=== PATIENT | male | born 1970 | race Caucasian/White ===

== ENCOUNTER 2022-10-22 16:24 | Emergency (ER) | payer OTHER, SELFPAY ==
[2022-10-22] VITALS (11 sets, daily range): BP systolic 118–158; BP diastolic 73–90; PULSE 66–73; RESP 17–22; TEMP 36.6; O2SAT 97–100; BMI 28.4
--- NOTE | 2022-10-22 16:45 | DI.RAD.S_ITS ---
PROCEDURE: XR CHEST 1V INDICATIONS: chest pain TECHNIQUE: One view of the chest was acquired. COMPARISON: None. FINDINGS: Surgical changes and devices: None. Lungs and pleura: Lungs are clear. No pleural effusions or pneumothorax. Mediastinum: Mediastinal contours appear normal. Heart size is normal. Bones and chest wall: No suspicious bony lesions. Overlying soft tissues appear unremarkable. IMPRESSION: No evidence of an acute cardiopulmonary abnormality. Dictated by: Dann Bauer D.O. on 10/22/2022 at 16:13 Approved by: Dann Bauer D.O. on 10/22/2022 at 16:13
--- NOTE | 2022-10-22 16:53 | PC.NURSE ---
Patient has subconjunctival hemorrhage in left eye below iris that terminates at edge of contact lens and resumes below it. Patient denies trauma or any other episode that could have resulted in the blood.
[2022-10-22 16:56] LABS: Add Manual Diff / Slide Review NO; Basophils Absolute Auto 100 /uL (0-100); Eosinophils Absolute Auto 300 /uL (0-450); Eosinophils Percent Auto 3.1 % (2-4); Hematocrit 44.6 % (41-53); Hemoglobin 15.2 g/dL (13.5-17.5); Lymphocytes Absolute Auto 2600 /uL (1100-4500); Lymphocytes Percent Auto 29.9 % (25-40); Mean Corpuscular HGB Conc 34.1 % (30-36); Mean Corpuscular Hemoglobin 29.2 PG (26-34); Mean Corpuscular Volume 85.6 fL (80-100); Monocytes Absolute Auto 600 /uL (0-900); Monocytes Percent Auto 6.5 % (3-14); Neutrophils Absolute Auto 5200 /uL (1500-7000); Neutrophils Percent Auto 59.5 % (50-75); Platelet Count 244 X10^3/uL (150-400); Red Blood Cell Count 5.21 X10^6/uL (4.5-5.9); Red Cell Distribution Width 13.9 % (11.6-14.8); White Blood Cell Count 8.8 X10^3/uL (4.5-11.0)
[2022-10-22 17:05] LABS: Prothrombin Time 11.3 SECONDS (10.1-12.7)
[2022-10-22 17:08] LABS: PTT Partial Thromboplastin Tim 31 SECONDS (26-36)
[2022-10-22 17:12] LABS: Alanine Aminotransferase 27 IU/L (<50); Albumin 4.9 g/dL (3.5-5.0); Albumin Globulin Ratio 1.3 (1.0-2.8); Alkaline Phosphatase 70 U/L (38-126); Aspartate Aminotransferase 47 IU/L (17-59); BUN Creatinine Ratio 23.9 (6-22); Bilirubin Total 0.7 mg/dL (0.2-1.3); Blood Urea Nitrogen 17 mg/dL (9-20); Calcium 9.4 mg/dL (8.4-10.2); Carbon Dioxide 23 mmol/L (22-32); Chloride 103 mmol/L (98-107); Creatine Kinase 64 U/L (55-170); Estimated Glomerular Filt Rate > 60 mL/min (>60); Globulin 3.8 g/dL (1.7-4.1); Glucose 84 mg/dL (70-100); Magnesium 2.1 mg/dL (1.6-2.3); Potassium 4.5 mmol/L (3.4-5.1); Sodium 136 mmol/L (137-145); Total Protein 8.7 g/dL (6.3-8.2)
[2022-10-22 17:23] LABS: Troponin I 0.024 ng/mL (0.01-0.034)
[2022-10-22 17:24] LABS: HEMOLYSIS 103 (0-50)
--- NOTE | 2022-10-22 17:44 | ED_ITS ---
HPI - Dizziness <Caro Toledo PA-C - Last Filed: 10/22/22 20:28> General Chief Complaint: Dizziness Stated Complaint: Lightheadedness Time Seen by Provider: 10/22/22 17:09 Source: patient Mode of arrival: Ambulatory History of Present Illness HPI Narrative: This is a 52-year-old male history of anxiety, depression, lumbar spinal decompression surgery, who presents with concern for headache/scalp numbness ep isodes that have been increasing in frequency for the past 2 weeks. Patient is also concerned about pain in his left calf that has been chronic but worsening recently. Patient states in about 2017 he 1st had an episode where the top of his scalp felt like it was numb and he developed a mild pressure sensation/headache that lasted for no more than 15 minutes. He went to an urgent care and they told him if it happened again to go to an ER. When this happened again he went to an ER and had a negative head CT scan he thinks this was in 2018. He states that he has been having these episodes intermittently perhaps every few months ever since they 1st started but in the past 2 weeks they have been happening much more frequently he says he has had at least 10 of them today and in the past few weeks has been having them 2 to 6 times a day, they are associated with a dizzy/vertigo type sensation. 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 He states that his left calf pain has been going on for at least a year. He had it evaluated about a year ago but he is not sure if they did a lab or an ultrasound but they told him they did not think he had a clot at that time. His pain there is fairly constant but he says sometimes it is worse than it as a ?throbbing type pain?. [place] and back to the [facility], [place]. He also endorses concern about possible Lyme disease as he was bit by a tick while in the [facility] last year. He does state he has spent a lot of time in the [facility] and lived there for much of the past 3 or 4 years. Has had increased stress in the past 2 months. He states that he does not sleep very well, and his best friend is bipolar and has been an increased source of stress for him in the last few months. When he came back August he did initially live with his bipolar friend but his friend could not handle having someone staying with him so he has moved out of his friend's place and is now temporarily living in a hotel. He has had a hard time dealing with his friend with his bipolar episodes and issues. Patient states he feels like he himself has some anxiety. He states he did take a medication for this for a few years but stopped taking it a while ago though he states his doctor thought it was helping. Also endorses that he has lost about 5 family members in the past 3 years of various diseases and notes that this makes him very concerned about his own health and potential illness. Patient states that he has had a red spot in his left eye for about the past 6 days. Denies vision change, eye pain, persistent headache, severe headache during episodes, one-sided weakness, numbness or tingling of his hands or feet, palpitations, syncope, recent illness or any other symptoms. Related Data Home Medications Medication Instructions Recorded Confirmed tizanidine 4 mg tablet 4 mg PO DAILY 10/22/22 10/22/22 Previous Rx's Medication Instructions Recorded hydroxyzine HCl 25 mg tablet 25 mg PO TID PRN anxiety #30 tabs 10/22/22 sumatriptan succinate 50 mg tablet See Rx Instructions PO .COMPLEX 30 10/22/22 (Imitrex) days #30 tabs Allergies Allergy/AdvReac Type Severity Reaction Status Date / Time No Known Drug Allergies Allergy Verified 10/22/22 16:44 Review of Systems <Caro Toledo PA-C - Last Filed: 10/22/22 20:28> Review of Systems Narrative: See HPI Patient History <Caro Toledo PA-C - Last Filed: 10/22/22 20:28> Social History Smoking Status: Never smoker Smoking Status: Never smoker alcohol intake frequency: a few times a week Substance Use Type: does not use Exam <Caro Toledo PA-C - Last Filed: 10/22/22 20:28> Narrative Exam Narrative: GENERAL: 52 year old patient appears stated age. Well-developed patient, in mild distress. HEAD: Atraumatic. Normocephalic. EYES: Pupils equal round and reactive. Extraocular motions intact. No nystagmus. No scleral icterus. No injection or drainage, there is a left subconjunctival hemorrhage at approximately the 6 o'clock position. ENT: Nose without bleeding, purulent drainage. Throat without erythema, tonsillar hypertrophy or exudate, uvula midline. Airway patent. NECK: Trachea midline. Non tender CARDIOVASCULAR: Regular rate and rhythm without murmurs, gallops, or rubs. RESPIRATORY: Clear to auscultation. Breath sounds equal bilaterally. No wheezes, rales, or rhonchi. GASTROINTESTINAL: Abdomen soft, non-tender, nondistended. EXTREMITIES: The affected left calf is 43-1/2 cm measured 10 cm below the tibial tuberosity, right calf is 41 1/4 cm. The mid posterior left calf has an area of slight tenderness with a slight firm feeling spot proximally 1 cm. No edema or joint tenderness. BACK: Nontender without deformity or crepitance. No flank tenderness. NEURO: Cranial nerves 2-12 intact. Patient states raising his eyebrows causes the numb tingling sensation in his scalp. Negative arm drift, [id number] intact. Equal multi media specialist. AOx3. SKIN: No rash or erythema of visible areas Initial Vital Signs Initial Vital Signs: Vital Signs Temperature 98 F 10/22/22 16:40 Pulse Rate 69 10/22/22 16:40 Respiratory Rate 17 10/22/22 16:40 Blood Pressure 158/90 H 10/22/22 16:40 Pulse Oximetry 100 10/22/22 16:40 Oxygen Delivery Method Room Air 10/22/22 16:40 <Jimmie Turk DO - Last Filed: 10/22/22 20:45> Initial Vital Signs Initial Vital Signs: Vital Signs Temperature 98 F 10/22/22 16:40 Pulse Rate 69 10/22/22 16:40 Respiratory Rate 17 10/22/22 16:40 Blood Pressure 158/90 H 10/22/22 16:40 Pulse Oximetry 100 10/22/22 16:40 Oxygen Delivery Method Room Air 10/22/22 16:40 Course <Caro Toledo PA-C - Last Filed: 10/22/22 20:28> Orders Ordered: ED Orders 10/22/22 16:40 Complete Blood Count AUTO DIFF Stat Comprehensive Metabolic Panel Stat Magnesium Stat PTT Partial Thromboplastin Michael Stat Prothrombin Time INR Stat Troponin & CK Cardiac Panel Stat 10/22/22 16:45 XR chest 1V Stat EKG-12 Lead Stat 10/22/22 18:27 US periph venous low extrem lt Stat 10/22/22 18:33 CT head/brain wo con Stat Vital Signs Vital signs: Vital Signs - 8 hr 10/22/22 16:40 10/22/22 16:45 10/22/22 16:47 Temperature 98 F Pulse Rate 69 66 66 Respiratory Rate 17 20 22 Blood Pressure 158/90 H Pulse Oximetry 100 100 100 Oxygen Delivery Method Room Air 10/22/22 16:47 10/22/22 17:00 10/22/22 17:00 Temperature Pulse Rate 69 Respiratory Rate 18 Blood Pressure 142/81 H 140/77 Pulse Oximetry 99 Oxygen Delivery Method 10/22/22 17:30 10/22/22 17:30 10/22/22 18:00 Temperature Pulse Rate 72 73 Respiratory Rate Blood Pressure 133/76 Pulse Oximetry 100 99 Oxygen Delivery Method 10/22/22 18:01 10/22/22 18:01 10/22/22 19:21 Temperature Pulse Rate 71 66 Respiratory Rate Blood Pressure 134/78 Pulse Oximetry 100 99 Oxygen Delivery Method 10/22/22 19:22 10/22/22 19:22 10/22/22 19:30 Temperature Pulse Rate 66 Respiratory Rate Blood Pressure 124/76 118/73 Pulse Oximetry 99 Oxygen Delivery Method 10/22/22 19:30 10/22/22 20:00 10/22/22 20:00 Temperature Pulse Rate 68 68 Respiratory Rate Blood Pressure 131/83 Pulse Oximetry 97 99 Oxygen Delivery Method <Jimmie Turk DO - Last Filed: 10/22/22 20:45> Orders Ordered: ED Orders 10/22/22 16:40 Complete Blood Count AUTO DIFF Stat Comprehensive Metabolic Panel Stat Magnesium Stat PTT Partial Thromboplastin Michael Stat Prothrombin Time INR Stat Troponin & CK Cardiac Panel Stat 10/22/22 16:45 XR chest 1V Stat EKG-12 Lead Stat 10/22/22 18:27 US periph venous low extrem lt Stat 10/22/22 18:33 CT head/brain wo con Stat Vital Signs Vital signs: Vital Signs - 8 hr 10/22/22 16:40 10/22/22 16:45 10/22/22 16:47 Temperature 98 F Pulse Rate 69 66 66 Respiratory Rate 17 20 22 Blood Pressure 158/90 H Pulse Oximetry 100 100 100 Oxygen Delivery Method Room Air 10/22/22 16:47 10/22/22 17:00 10/22/22 17:00 Temperature Pulse Rate 69 Respiratory Rate 18 Blood Pressure 142/81 H 140/77 Pulse Oximetry 99 Oxygen Delivery Method 10/22/22 17:30 10/22/22 17:30 10/22/22 18:00 Temperature Pulse Rate 72 73 Respiratory Rate Blood Pressure 133/76 Pulse Oximetry 100 99 Oxygen Delivery Method 10/22/22 18:01 10/22/22 18:01 10/22/22 19:21 Temperature Pulse Rate 71 66 Respiratory Rate Blood Pressure 134/78 Pulse Oximetry 100 99 Oxygen Delivery Method 10/22/22 19:22 10/22/22 19:22 10/22/22 19:30 Temperature Pulse Rate 66 Respiratory Rate Blood Pressure 124/76 118/73 Pulse Oximetry 99 Oxygen Delivery Method 10/22/22 19:30 10/22/22 20:00 10/22/22 20:00 Temperature Pulse Rate 68 68 Respiratory Rate Blood Pressure 131/83 Pulse Oximetry 97 99 Oxygen Delivery Method MDM - Dizziness <Caro Toledo PA-C - Last Filed: 10/22/22 20:28> Differential Diagnosis Differential diagnosis: Likely benign paroxysmal positional vertigo and other (cluster headaches, stress headaches, anxiety, DVT, claudication) Lab Data 10/22/22 16:40 10/22/22 16:40 Labs: Lab Results 10/22/22 10/22/22 10/22/22 Range/Units 16:40 16:40 16:40 WBC 8.8 (4.5-11.0) X10^3/uL RBC 5.21 (4.5-5.9) X10^6/uL Hgb 15.2 (13.5-17.5) g/dL Hct 44.6 (41-53) % MCV 85.6 (80-100) fL MCH 29.2 (26-34) PG MCHC 34.1 (30-36) % RDW 13.9 (11.6-14.8) % Plt Count 244 (150-400) X10^3/uL Neut % (Auto) 59.5 (50-75) % Lymph % (Auto) 29.9 (25-40) % Haskell % (Auto) 6.5 (3-14) % Eos % (Auto) 3.1 (2-4) % Baso % (Auto) 1.0 (0-2) % Neut # (Auto) 5200 (4543-5212) /uL Lymph # (Auto) 2600 (2470-2808) /uL Haskell # (Auto) 600 (0-900) /uL Eos # (Auto) 300 (0-450) /uL Baso # (Auto) 100 (0-100) /uL PT 11.3 (10.1-12.7) SECONDS INR 1.0 (0.9-1.3) APTT 31 (26-36) SECONDS Sodium 136 L (137-145) mmol/L Potassium 4.5 (3.4-5.1) mmol/L Chloride 103 (98-107) mmol/L Carbon Dioxide 23 (22-32) mmol/L BUN 17 (9-20) mg/dL Creatinine 0.71 (0.66-1.25) mg/dL Estimated GFR > 60 (>60) mL/min BUN/Creatinine Ratio 23.9 H (6-22) Glucose 84 (70-100) mg/dL Calcium 9.4 (8.4-10.2) mg/dL Magnesium 2.1 (1.6-2.3) mg/dL Total Bilirubin 0.7 (0.2-1.3) mg/dL AST 47 (17-59) IU/L ALT 27 (<50) IU/L Alkaline Phosphatase 70 (38-126) U/L Total Creatine Kinase 64 (55-170) U/L CK-MB (CK-2) TNP CK-MB (CK-2) Rel Index TNP Troponin I 0.024 (0.01-0.034) ng/mL Total Protein 8.7 H (6.3-8.2) g/dL Albumin 4.9 (3.5-5.0) g/dL Globulin 3.8 (1.7-4.1) g/dL Albumin/Globulin Ratio 1.3 (1.0-2.8) Urine Dip Bedside Urine Glucose Negative Bedside Urine Bilirubin - Negative Bedside Urine Ketone - Negative Urine Specific Mccoy 1.01 Bedside Urine Occult Blood - Negative Bedside Urine pH 5.5 Bedside Urine Protein - Negative Bedside Urine Urobilinogen - Negative Bedside Urine Nitrite - Negative Bedside Urine Leukocytes - Negative Esterase Imaging Data CT scan - head: My Impression: Agree with Radiology interpretation Radiologist's Impression: [address] [address] [address] Scan Report Signed Patient: Checo Rodriguez MR#: [id number] : 1970 Acct:[id number] Age/Sex: 52 / M Date of Service: 10/22/22 Loc: ED Accession Number: [id number] ?? Procedure: CT head/brain wo con Ordering Provider: Caro Toledo P.A-C PROCEDURE:? CT HEAD/BRAIN WO CON ? INDICATIONS:? scalp numbness, dizziness episodes increasing ? TECHNIQUE:? Noncontrast 4.5 mm thick angled axial sections acquired from the foramen magnum to the vertex, with coronal and sagittal reformats.? For radiation dose reduction, the following was used:? automated exposure control, adjustment of mA and/or kV according to patient size.? ? COMPARISON:? None. ? FINDINGS:? Image quality:? Excellent.? ? CSF spaces:? Basal cisterns are patent.? No extra-axial fluid collections.? Ventricles are normal in size and shape.? ? Brain:? No midline shift.? No intracranial masses or hemorrhage.? Lopez-white matter interface is normal.? ? Skull and face:? Calvarium and visualized facial bones are intact, without suspicious lesions.? ? Sinuses:? Visualized sinuses and mastoids are clear.? ? IMPRESSION:? No evidence acute intracranial process. ? ? Dictated by: Neeraj Costello M.D. on 10/22/2022 at 19:21 ? ? Approved by: Neeraj Costello M.D. on 10/22/2022 at 19:22?? Chest x-ray: My Impression: Agree with Radiology interpretation Radiologist's Impression: [address] [address] XRay Report Signed Patient: Checo Rodriguez MR#: [id number] : 1970 Acct:[id number] Age/Sex: 52 / M Date of Service: 10/22/22 Loc: ED Accession Number: [id number] ?? Procedure: XR chest 1V Ordering Provider: Carol Scherer D.O. PROCEDURE:? XR CHEST 1V ? INDICATIONS:? chest pain ? TECHNIQUE:? One view of the chest was acquired.? ? COMPARISON:? None. ? FINDINGS:? ? Surgical changes and devices:? None.? ? Lungs and pleura:? Lungs are clear.? No pleural effusions or pneumothorax.? ? Mediastinum:? Mediastinal contours appear normal.? Heart size is normal.? ? Bones and chest wall:? No suspicious bony lesions.? Overlying soft tissues appear unremarkable.? ? IMPRESSION:? ? No evidence of an acute cardiopulmonary abnormality. ? ? Dictated by: Dann Bauer D.O. on 10/22/2022 at 16:13 ? ? Approved by: Dann Bauer D.O. on 10/22/2022 at 16:13?? US venous: My Impression: Agree with Radiology interpretation Radiologist's Impression: [place] [address] Ultrasound Report Signed Patient: Checo Rodriguez MR#: [id number] : 1970 Acct:[id number] Age/Sex: 52 / M Date of Service: 10/22/22 Loc: ED Accession Number: [id number]? ? Procedure: US periph venous low extrem lt Ordering Provider: Caro Toledo P.A-C PROCEDURE:? US PERIPH VENOUS LOW EXTREM LT ? INDICATIONS:? Left calf pain/tender/L size>R ? TECHNIQUE:? Real-time imaging, as well as color and pulse Doppler interrogation, were performed of the lower extremity deep veins from the inguinal ligament to the popliteal fossa.? ? COMPARISON:? None. ? FINDINGS:? The common femoral, femoral and popliteal veins are normally compressible, and free of intraluminal thrombus.? Color and pulse Doppler demonstrate normal phasic intraluminal flow.? There is normal augmentation response to distal compression maneuver. ? ? IMPRESSION:? Negative left lower extremity duplex venous ultrasound for DVT. ? ? Dictated by: Neeraj Costello M.D. on 10/22/2022 at 19:30? ?? Approved by: Neeraj Costello M.D. on 10/22/2022 at 19:30?? ECG Data Attestation: I personally reviewed and interpreted this ECG as follows: Interpretation: Normal sinus rhythm heart rate 71 no ectopy, no ST changes noted, T-wave inversions V1 and lead 3. EKG also evaluated by attending physician Dr. Scherer Treatment and disposition Shared decision making:: Shared decision-making was used in determining the evaluation today for the patient in the emergency department as well as plan for outpatient follow-up. MDM Narrative Medical decision making narrative: This is a generally well-appearing though slightly anxious 52-year-old male who presents with concern for recently worsening chronic symptoms of sudden onset scalp numbness and mild headache/pressure symptoms which he believes are brought on by increased stress/anxiety. Also concern for left calf pain that has been chronic and ongoing for over a year worsening recently. Evaluation today includ ed cardiac workup given initial complaint of dizziness in triage, this was unremarkable including an EKG and labs, further evaluation of patient's complaints with noncontrast head CT which was also unremarkable as well as DVT study of the affected left leg which did not show any evidence of DVT. Patient does have a primary care provider that he saw recently and has a follow-up appointment scheduled with them in 10 days' time. All of his symptoms have been chronic however have been worsening recently in the setting of increased stress. Patient had an unremarkable neuro exam and history and exam not suggestive of CVA. Do believe it is quite possible that some of his symptoms are associated with anxiety/mental health/stressors. Possible that his left calf pain is claudication. Patient is advised to follow up closely with his primary care provider talked to them about getting in to see Neurology, cause possibly Behavioral Health, and possibly get further studies to further evaluate his left calf pain. Return precautions provided, follow-up plan discussed, all questions answered. <Jimmie Turk DO - Last Filed: 10/22/22 20:45> Lab Data Labs: Lab Results 10/22/22 10/22/22 10/22/22 Range/Units 16:40 16:40 16:40 WBC 8.8 (4.5-11.0) X10^3/uL RBC 5.21 (4.5-5.9) X10^6/uL Hgb 15.2 (13.5-17.5) g/dL Hct 44.6 (41-53) % MCV 85.6 (80-100) fL MCH 29.2 (26-34) PG MCHC 34.1 (30-36) % RDW 13.9 (11.6-14.8) % Plt Count 244 (150-400) X10^3/uL Neut % (Auto) 59.5 (50-75) % Lymph % (Auto) 29.9 (25-40) % Haskell % (Auto) 6.5 (3-14) % Eos % (Auto) 3.1 (2-4) % Baso % (Auto) 1.0 (0-2) % Neut # (Auto) 5200 (8327-5793) /uL Lymph # (Auto) 2600 (2807-8134) /uL Haskell # (Auto) 600 (0-900) /uL Eos # (Auto) 300 (0-450) /uL Baso # (Auto) 100 (0-100) /uL PT 11.3 (10.1-12.7) SECONDS INR 1.0 (0.9-1.3) APTT 31 (26-36) SECONDS Sodium 136 L (137-145) mmol/L Potassium 4.5 (3.4-5.1) mmol/L Chloride 103 (98-107) mmol/L Carbon Dioxide 23 (22-32) mmol/L BUN 17 (9-20) mg/dL Creatinine 0.71 (0.66-1.25) mg/dL Estimated GFR > 60 (>60) mL/min BUN/Creatinine Ratio 23.9 H (6-22) Glucose 84 (70-100) mg/dL Calcium 9.4 (8.4-10.2) mg/dL Magnesium 2.1 (1.6-2.3) mg/dL Total Bilirubin 0.7 (0.2-1.3) mg/dL AST 47 (17-59) IU/L ALT 27 (<50) IU/L Alkaline Phosphatase 70 (38-126) U/L Total Creatine Kinase 64 (55-170) U/L CK-MB (CK-2) TNP CK-MB (CK-2) Rel Index TNP Troponin I 0.024 (0.01-0.034) ng/mL Total Protein 8.7 H (6.3-8.2) g/dL Albumin 4.9 (3.5-5.0) g/dL Globulin 3.8 (1.7-4.1) g/dL Albumin/Globulin Ratio 1.3 (1.0-2.8) Urine Dip Bedside Urine Glucose Negative Bedside Urine Bilirubin - Negative Bedside Urine Ketone - Negative Urine Specific Mccoy 1.01 Bedside Urine Occult Blood - Negative Bedside Urine pH 5.5 Bedside Urine Protein - Negative Bedside Urine Urobilinogen - Negative Bedside Urine Nitrite - Negative Bedside Urine Leukocytes - Negative Esterase Discharge Plan Departure Patient Disposition: Home Clinical Impression: Frequent headaches, Anxiety, Stress, Pain of left calf Activity Restrictions/Additional Instructions: Thank you for letting us be part of her care today in the emergency department. We did CT imaging of your head as well as an ultrasound of your left calf as well as labs and EKG and chest x-ray. Thankfully we did not find anything life- threatening or concerning on your exam or these studies. Although you definitely will need to follow-up closely with your primary care provider, as we discussed I encourage you to see Neurology for further evaluation of your headache and tingling scalp symptoms. I also have prescribed an anxiety medication for you that you can take as needed. I encourage you to talk to your primary care provider about restarting medication for depression and anxiety as well, this can be potentially sedating so please do not take it right before geraldo nolan. In addition I prescribed medication to help with headache/migraine which may be helpful for you. Please take it only as prescribed. I am glad to see you have a primary care appointment for follow-up soon but of course if you have new or worsening symptoms do not hesitate to seek re-evaluation. There is no evidence of an emergent or life threatening illness at this time, but follow up with your doctor in 1-2 days is recommended nonetheless to continue to rule out serious underlying causes of your symptoms. Please call the office for an appointment. Please return to the Emergency Department for any worsening or persistent symptoms. Please take medications as directed. Prescriptions: New sumatriptan succinate [Imitrex] 50 mg tablet See Rx Instructions .ROUTE .COMPLEX 30 Days Qty: 30 1RF Rx Instructions: take 1 tab at onset of headache; if no relief may repeat 1 tab after at least 2 hrs; max = 4 tabs/24 hr hydroxyzine HCl 25 mg tablet 25 mg PO TID PRN (Reason: anxiety) Qty: 30 1RF No Action tizanidine 4 mg tablet 4 mg PO DAILY Stand Alone Forms: Patient Portal/API <Jimmie Turk, DO - Last Filed: 10/22/22 20:45> Cosign ED Attending Cosignature Attestation: Dr Turk Co-Sign Statement: I was available for consultation during this patient's emergency department visit. This chart is signed by myself for administrative purposes only. I did not have direct contact with this patient during this visit. They were seen independently by the APC.
--- NOTE | 2022-10-22 18:27 | DI.US.S_ITS ---
PROCEDURE: US PERIPH VENOUS LOW EXTREM LT INDICATIONS: Left calf pain/tender/L size>R TECHNIQUE: Real-time imaging, as well as color and pulse Doppler interrogation, were performed of the lower extremity deep veins from the inguinal ligament to the popliteal fossa. COMPARISON: None. FINDINGS: The common femoral, femoral and popliteal veins are normally compressible, and free of intraluminal thrombus. Color and pulse Doppler demonstrate normal phasic intraluminal flow. There is normal augmentation response to distal compression maneuver. IMPRESSION: Negative left lower extremity duplex venous ultrasound for DVT. Dictated by: Neeraj Costello M.D. on 10/22/2022 at 19:30 Approved by: Neeraj Costello M.D. on 10/22/2022 at 19:30
--- NOTE | 2022-10-22 18:33 | DI.CT.S_ITS ---
PROCEDURE: CT HEAD/BRAIN WO CON INDICATIONS: scalp numbness, dizziness episodes increasing TECHNIQUE: Noncontrast 4.5 mm thick angled axial sections acquired from the foramen magnum to the vertex, with coronal and sagittal reformats. For radiation dose reduction, the following was used: automated exposure control, adjustment of mA and/or kV according to patient size. COMPARISON: None. FINDINGS: Image quality: Excellent. CSF spaces: Basal cisterns are patent. No extra-axial fluid collections. Ventricles are normal in size and shape. Brain: No midline shift. No intracranial masses or hemorrhage. Lopez-white matter interface is normal. Skull and face: Calvarium and visualized facial bones are intact, without suspicious lesions. Sinuses: Visualized sinuses and mastoids are clear. IMPRESSION: No evidence acute intracranial process. Dictated by: Neeraj Costello M.D. on 10/22/2022 at 19:21 Approved by: Neeraj Costello M.D. on 10/22/2022 at 19:22
== END 2022-10-22 20:10 | disposition home or self-care (01) ==
PROVIDERS: Emergency Medicine; Emergency Provider Student in an Organized Health Care Education/Training Program
DX: R51.9 Headache, unspecified (principal); F41.9 Anxiety disorder, unspecified; F43.9 Reaction to severe stress, unspecified; R07.9 Chest pain, unspecified; M79.662 Pain in left lower leg; R20.0 Anesthesia of skin
CPT/HCPCS: 36415; 70450; 71045; 80053; 81003; 82550; 83735; 84484; 85025; 85610; 85730; 93005; 93971; 99284